=== PATIENT | female | born 1995 | race Caucasian/White ===

== ENCOUNTER 2017-10-09 13:35 | Emergency (ER) | payer OTHER ==
[2017-10-09 14:20] VITALS: BP 101/52
[2017-10-09 15:29] LABS: Bacteria,Urine 1+ /HPF (Negative); Bilirubin,Urine NEG (Negative); Blood,Urine NEG (Negative); Color,Urine Yellow (Yellow); Mucus,Urine 3+ /HPF
[2017-10-09 15:36] LABS: Amphetamine Screen,Urine PRESUMPTIVE NEGATIVE; Benzodiazepines Screen,Urine PRESUMPTIVE NEGATIVE; Cannabinoid Screen,Urine PRESUMPTIVE NEGATIVE; Cocaine Screen,Urine PRESUMPTIVE NEGATIVE; Methadone Screen,Urine PRESUMPTIVE NEGATIVE; Opiate Screen,Urine PRESUMPTIVE NEGATIVE
--- NOTE | 2017-10-09 15:49 | XRay Report ---
FINAL REPORT EXAM: XR CHEST ROUTINE 2V HISTORY: Chest Pain TECHNIQUE: Frontal and lateral chest radiographs. PRIORS: None. FINDINGS: The cardiomediastinal silhouette is normal. No focal consolidation. No pleural effusion. No pneumothorax. No acute osseous abnormality. IMPRESSION: No acute cardiopulmonary process.
[2017-10-09] MEDS ORDERED: TYLENOL PO ONE (16:22)
--- NOTE | 2017-10-09 16:22 | Emergency Department Report ---
HPI - General Chief Complaint: Chest Pain - HPI HPI: 22-year-old female comes in with chest pain. Patient reports that her heart was pounding and she was having a feeling that her pulse burning. Patient reports that she had the flu one month ago which has resolved. Patient does admit to a headache this morning but has gotten better after taking the Advil prior to coming in. She denies any cough admits to sneezing and runny nose nasal congestion. She denies any recent lifting no trauma to the chest. That pain is elicited when she checked the middle of her chest. She does admit that she has had imaging which showed that she had some fluid around her ribs. Patient is followed by now Dr. John. ED Past Medical Hx - Past Medical History Previous Medical History?: No - Surgical History Past Surgical History?: No Additional Surgical History: knee, tumor removed - Social History Smoking Status: Never Smoker Substance Use Type: None - Medications Home Medications: Home Medications Medication Instructions Recorded Confirmed Last Taken Type Ibuprofen 600 mg PO TID #90 tablet 10/09/17 Unknown Rx Levocetirizine Dihydrochloride 5 mg PO QDAY #30 tablet 10/09/17 Unknown Rx ED Review of Systems ROS: Stated complaint: CHEST PAIN Other details as noted in HPI Constitutional: denies: chills, fever Eyes: denies: eye pain, eye discharge, vision change ENT: congestion, other (nasal congestion, wheezing). denies: ear pain, throat pain Respiratory: denies: cough, shortness of breath, wheezing Cardiovascular: chest pain (when she touches her sternum) Endocrine: no symptoms reported Gastrointestinal: denies: abdominal pain, nausea, diarrhea Genitourinary: denies: urgency, dysuria, discharge Musculoskeletal: denies: back pain, joint swelling, arthralgia Skin: denies: rash, lesions Neurological: denies: headache, weakness, paresthesias Psychiatric: denies: anxiety, depression Hematological/Lymphatic: denies: easy bleeding, easy bruising Physical Exam - Physical Exam Vital Signs: Vital Signs 10/09/17 14:17 Temperature 98.5 F Pulse Rate 94 H Blood Pressure 101/52 O2 Sat by Pulse 97 Oximetry Physical Exam: GENERAL: Alert and oriented x3, no apparent distress, Normal Gait, atraumatic. HEAD: Head is normocephalic and a-traumatic. EYES: Extra ocular muscles are intact. Pupils are equal, round, and reactive to light and accommodation. EARS: symetrical, atraumatic, non tender, ear canal clear and moderate cerumen, tympanic membrance non inflamed. gross auditory nml bilaterally. NOSE: Nose symetrical, Nontender,Nares appeared normal. MOUTH:Mouth is well hydrated and without lesions. Tonsils nonerythematous or swollen, Uvula midline, Tongue not elevated. Mucous membranes are moist. Posterior pharynx clear, no exudate or lesions. Patent airways. NECK: Supple. Non edematous, No carotid bruits. No lymphadenopathy or thyromegaly. LUNGS: Symetrical with respiration, No wheezing, no rales or crackles, CTAB. HEART: S1, S2 present, regular rate and rhythm without murmur, no rubs, no gallops. patient with palpitation to distal sternum EXTREMITIES/MUSCULOSKELETAL: No cyanosis, clubbing, rash, lesions or edema. Full ROM bilaterally. UE/LE Pulses 2+ bilaterally. LE and UE 5+ strength bilaterally NEUROLOGIC: No focal Deficit, Cranial nerves II through XII are grossly intact. No loss of sensation, No facial droop, PSYCHIATRIC: Mood is congruent with affect, denies suicidal or homicidal ideations. SKIN: Warm and dry, No lesions, No ulceration or induration present ED Course Vital Signs 10/09/17 14:17 Temperature 98.5 F Pulse Rate 94 H Blood Pressure 101/52 O2 Sat by Pulse 97 Oximetry ED Medical Decision Making - Radiology Data Radiology results: report reviewed Impression of chest x-ray no acute cardiopulmonary process. - Medical Decision Making Patient been evaluated by this provider. I discussed the patient and her EKG was within normal limits. Discussed the patient and her chest x-rays is negative.I give her Tylenol and that she can take another Advil and about an hour. Critical care attestation.: If time is entered above; I have spent that time in minutes in the direct care of this critically ill patient, excluding procedure time. ED Disposition Clinical Impression: Osteochondritis Seasonal allergies Qualifiers: Allergic rhinitis trigger: unspecified Qualified Code(s): J30.2 - Other seasonal allergic rhinitis Disposition: - TO HOME OR SELFCARE Is pt being admited?: No Does the pt Need Aspirin: No Condition: Stable Instructions: Costochondritis (ED), Allergic Rhinitis (ED) Additional Instructions: Take medication as prescribed. Follow-up to primary care provider if symptoms persist or gets worse. Prescriptions: Ibuprofen 600 mg PO TID #90 tablet Levocetirizine Dihydrochloride 5 mg PO QDAY #30 tablet Referrals: CHEKO MONTALVO MD [Primary Care Provider] - 3-5 Days REJI JOHN MD [Referring] - 3-5 Days
== END 2017-10-09 16:43 | disposition home or self-care (01) ==
LOC: ED 13:35
DX: M93.90 Osteochondropathy, unspecified of unspecified site (principal); J30.2 Other seasonal allergic rhinitis
CPT/HCPCS: 71046; 80307; 81001; 93005; 93010

== ENCOUNTER 2019-02-24 15:10 | Emergency (ER) | payer OTHER ==
--- NOTE | 2019-02-24 16:15 | Event Note ---
ED Screening Note ED Screening Note: pt states that she has emesis today had one episode today with small amount of blood streak no abd pain no vaginal bleeding pt is 16 weeks preg, OB: Dr. Somers no dysuria no diarrhea no fever no PMHx no allergies to meds This initial assessment/diagnostic orders/clinical plan/treatment(s) is/are s ubject to change based on patients health status, clinical progression and re- assessment by fellow clinical providers in the ED. Further treatment and workup at subsequent clinical providers discretion. Patient/guardian urged not to elope from the ED as their condition may be serious if not clinically assessed and managed. Initial orders include: labs, UA
[2019-02-24 16:55] LABS: Basophils % (Auto) 0.4 % (0.0-1.8); Eosinophils # (Auto) 0.1 K/mm3 (0.0-0.4); Eosinophils % (Auto) 0.6 % (0.0-4.3); Hematocrit 34.5 % (30.3-42.9); Hemoglobin 11.9 gm/dl (10.1-14.3); Lymphocytes # (Auto) 2.2 K/mm3 (1.2-5.4); Lymphocytes % (Auto) 18.5 % (13.4-35.0); Mean Corpuscular HGB Conc 34 % (30-34); Mean Corpuscular Volume 99 fl (79-97); Monocytes # (Auto) 0.5 K/mm3 (0.0-0.8); Monocytes % (Auto) 4.6 % (0.0-7.3); Platelet Count 187 K/mm3 (140-440); Red Blood Count 3.49 M/mm3 (3.65-5.03); Red Cell Distribution Width 13.9 % (13.2-15.2)
[2019-02-24 17:09] LABS: Bacteria,Urine 2+ /HPF (Negative); Bilirubin,Urine NEG (Negative); Blood,Urine NEG (Negative); Color,Urine Yellow (Yellow); Mucus,Urine FEW /HPF; Protein,Urine <15 mg/dL mg/dL (Negative); Urobilinogen,Urine < 2.0 mg/dL (<2.0)
[2019-02-24 17:22] LABS: Alanine Aminotransferase 78 units/L (7-56); Albumin 3.7 g/dL (3.9-5); BUN/Creatinine Ratio 15; Blood Urea Nitrogen 6 mg/dL (7-17); Calcium 9.5 mg/dL (8.4-10.2); Hemolysis Index 4
[2019-02-24] MEDS ORDERED: PEPCID IV ONE (20:07)
[2019-02-24] MEDS ORDERED: REGLAN IV ONE (20:07)
[2019-02-24] MEDS ORDERED: LIDOCAINE VISCOUS 2% PO ONE (20:07)
[2019-02-24] MEDS ORDERED: ALUM-MAG HYDROX-SIMETH 200-200-20MG/5ML PO ONE (20:07)
[2019-02-24] MEDS ORDERED: ROCEPHIN/NS 1 GM/50 ML 1 GM/50 ML BAG IV ONE (20:08)
[2019-02-24 20:30] VITALS: BP 94/59
--- NOTE | 2019-02-24 21:54 | Ultrasound Report ---
ULTRASOUND OBSTETRIC INDICATION / CLINICAL INFORMATION: Abdominal pain. Clinical Gestational Age (GA): 17 weeks 0 days with LMP 10/28/2018 TECHNIQUE: Transabdominal. COMPARISON: None available. FINDINGS: There is a single intrauterine . Biparietal Diameter = 3.59 cm = 17 weeks, 0 day(s). Head Circumference = 13.08 cm = 16 weeks, 5 day(s). Abdominal Circumference = 11.37 cm = 17 weeks, 1 day(s). Femur Length = 2.27 cm = 17 weeks, 0 day(s). Average Ultrasound Age (AUA) = 17 weeks, 0 day(s). Heart Rate: 178 beats per minute. Estimated Weight in grams (if calculated): 178 Estimated Weight Growth Percentile (if calculated): Not calculated Position: breech. Cervix: closed. Length in cm (if measured): Placenta: Posterior grade 0 and free of the os. Amniotic Fluid Volume: normal Amniotic Fluid Index (JALEESA) in cm (if calculated): . Maternal Adnexa: Not visualized IMPRESSION: 1. Single, living intrauterine with estimated sonographic age of 17 weeks, 0 day(s). 2. No significant sonographic abnormality. Signer Name: Anthony Bergeron MD Signed: 02/24/2019 9:49 PM Workstation Name: [id number]
--- NOTE | 2019-02-24 22:09 | Emergency Department Report ---
ED N/V/D HPI - General Chief complaint: Nausea/Vomiting/Diarrhea Stated complaint: 16WKS /VOMITTING BLOOD Time Seen by Provider: 02/24/19 16:14 Source: patient Mode of arrival: Ambulatory Limitations: No Limitations - History of Present Illness Initial comments: Patient is a A0 23-year-old female who is approximately 16 weeks gestation and presents to the ED with conjugate of acute onset intermittent nausea and vomiting with a single episode of hematemesis which she describes as mixed blood and food particles from the stomach to arouse him. Patient states that the vomiting and hematemesis was one time 12 hours ago and when she contacted her teacher vocal, she was told to come to the ED for evaluation of the fetus and SOB. Patient denies abdominal pain, vaginal bleeding, dysuria, urinary frequency and urgency, dizziness, fever, chills, cough, chest pain, sore throat, headache, shortness of breath, or diarrhea. Patient states that she has been eating intermittently through the day with no nausea or vomiting. MD complaint: nausea, vomiting, other (hematemesis) -: Sudden, hour(s) (12) Description of Vomiting: food contents, watery, bilious, blood-streaked Description of Diarrhea: other (None) Associated Abdominal Pain: No Location: epigastric Radiation: none Severity: mild Pain Scale: 0 Quality: dull Consistency: intermittent, now resolved Improves with: none Worsens with: none Associated Symptoms: denies other symptoms, nausea/vomiting. denies: myalgias, chest pain, cough, diaphoresis, fever/chills, headaches, loss of appetite, malaise, rash, dysuria, shortness of breath, syncope, weakness - Related Data Previous Rx's Medication Instructions Recorded Last Taken Type Ibuprofen 600 mg PO TID #90 tablet 10/09/17 Unknown Rx Levocetirizine Dihydrochloride 5 mg PO QDAY #30 tablet 10/09/17 Unknown Rx Omeprazole 20 mg PO DAILY #30 capsule. 02/24/19 Unknown Rx Promethazine [Phenergan] 25 mg PO Q6HR PRN #24 tab 02/24/19 Unknown Rx cephALEXin [Keflex] 500 mg PO Q6HR #40 capsule 02/24/19 Unknown Rx Allergies Allergy/AdvReac Type Severity Reaction Status Date / Time No Known Allergies Allergy Verified 02/24/19 15:12 ED Review of Systems ROS: Stated complaint: 16WKS /VOMITTING BLOOD Other details as noted in HPI Constitutional: denies: chills, fever Eyes: denies: eye pain, eye discharge, vision change ENT: denies: ear pain, throat pain Respiratory: denies: cough, shortness of breath, wheezing Cardiovascular: denies: chest pain, palpitations Endocrine: no symptoms reported Gastrointestinal: nausea, vomiting, hematemesis. denies: abdominal pain, diarrhea Genitourinary: denies: urgency, dysuria, discharge Musculoskeletal: denies: back pain, joint swelling, arthralgia Skin: denies: rash, lesions Neurological: denies: headache, weakness, paresthesias Psychiatric: denies: anxiety, depression Hematological/Lymphatic: denies: easy bleeding, easy bruising ED Past Medical Hx - Past Medical History Previous Medical History?: No - Surgical History Past Surgical History?: No Additional Surgical History: knee, tumor removed - Social History Smoking Status: Never Smoker Substance Use Type: None - Medications Home Medications: Home Medications Medication Instructions Recorded Confirmed Last Taken Type Ibuprofen 600 mg PO TID #90 tablet 10/09/17 Unknown Rx Levocetirizine Dihydrochloride 5 mg PO QDAY #30 tablet 10/09/17 Unknown Rx Omeprazole 20 mg PO DAILY #30 capsule. 02/24/19 Unknown Rx Promethazine [Phenergan] 25 mg PO Q6HR PRN #24 tab 02/24/19 Unknown Rx cephALEXin [Keflex] 500 mg PO Q6HR #40 capsule 02/24/19 Unknown Rx ED Physical Exam - General Limitations: No Limitations General appearance: alert, in no apparent distress - Head Head exam: Present: atraumatic, normocephalic, normal inspection - Eye Eye exam: Present: normal appearance, PERRL, EOMI. Absent: scleral icterus, conjunctival injection Pupils: Present: normal accommodation - ENT ENT exam: Present: normal exam, normal orophraynx, mucous membranes moist, TM's normal bilaterally, normal external ear exam - Neck Neck exam: Present: normal inspection, full ROM. Absent: tenderness - Respiratory Respiratory exam: Present: normal lung sounds bilaterally. Absent: respiratory distress, wheezes, rales, rhonchi, stridor, chest wall tenderness, accessory muscle use, decreased breath sounds - Cardiovascular Cardiovascular Exam: Present: regular rate, normal rhythm, normal heart sounds. Absent: systolic murmur, diastolic murmur, rubs, gallop - GI/Abdominal GI/Abdominal exam: Present: soft, normal bowel sounds, other (Gravid abdomen). Absent: distended, tenderness, guarding, rebound, rigid, hyperactive bowel sounds, hypoactive bowel sounds, organomegaly, mass - Rectal Rectal exam: Present: deferred - Extremities Exam Extremities exam: Present: normal inspection, full ROM, normal capillary refill - Back Exam Back exam: Present: normal inspection. Absent: CVA tenderness (L), muscle spasm - Neurological Exam Neurological exam: Present: alert, oriented X3 - Psychiatric Psychiatric exam: Present: normal affect, normal mood - Skin Skin exam: Present: warm, dry, intact, normal color. Absent: rash ED Course Vital Signs 02/24/19 02/24/19 16:14 20:29 Temperature 98.5 F 98.6 F Pulse Rate 78 75 Respiratory 16 18 Rate Blood Pressure 129/88 Blood Pressure 94/59 [Left] O2 Sat by Pulse 98 100 Oximetry - Reevaluation(s) Reevaluation #1: 02/24/19 22:18 Patient is alert and oriented 3 and is nontender distress with normal vital signs. Lab test results were reviewed and are unremarkable except for acute leukocytosis of 12,000 and acute urinary tract infection in urinalysis. Patient was treated for nausea and vomiting and also treated with antacids in the ED. Patient also received Rocephin 1 g IV for acute urinary tract infection. The ultrasound shows a single living IUP with estimated sonographic age of 17 weeks and 0 days. The patient's heart rate is 178 bpm and the fetus lies in a breech position. There are no other significant sonographic abnormalities. On reevaluation, patient is feeling better, and has not had any nausea or vomiting in the ED after drinking the GI cocktail. Patient is discharged home on antiemetics, antacids and antibiotics and advised to follow-up with her SPEECH PATHOLOGIST ASSIST[facility] physician in 3-5 days for reevaluation. Patient also given a referral to the GI physician with the [facility] head operator, Dr. Nguyễn Sellers for further evaluation of her Hematemesis. Patient was advised to return to the ED immediately if symptoms get worse. 02/24/19 22:18 02/24/19 22:20 ED Medical Decision Making - Lab Data Result diagrams: 02/24/19 16:25 02/24/19 16:25 - Radiology Data Radiology results: report reviewed, image reviewed The ultrasound shows a single living IUP with estimated sonographic age of 17 weeks and 0 days. The patient's heart rate is 178 bpm and the fetus lies in a breech position. There are no other significant sonographic abnormalities. 02/24/19 22:18 - Medical Decision Making Patient is alert and oriented 3 and is nontender distress with normal vital signs. Lab test results were reviewed and are unremarkable except for acute leukocytosis of 12,000 and acute urinary tract infection in urinalysis. Patient was treated for nausea and vomiting and also treated with antacids in the ED. Patient also received Rocephin 1 g IV for acute urinary tract infection. The ultrasound shows a single living IUP with estimated sonographic age of 17 weeks and 0 days. The patient's heart rate is 178 bpm and the fetus lies in a breech position. There are no other significant sonographic abnormalities. On reevaluation, patient is feeling better, and has not had any nausea or vomiting in the ED after drinking the GI cocktail. Patient is discharged home on antiemetics, antacids and antibiotics and advised to follow-up with her [facility] PATHOLOGIST ASSIST[facility] physician in 3-5 days for reevaluation. Patient also given a referral to the GI physician with the [facility] operator, Dr. Nguyễn Sellers for further evaluation of her Hematemesis. Patient was advised to return to the ED im mediately if symptoms get worse. 02/24/19 22:18 - Differential Diagnosis Nausea and vomiting; Hematemesis, Acuet UTI, GERD Critical care attestation.: If time is entered above; I have spent that time in minutes in the direct care of this critically ill patient, excluding procedure time. ED Disposition Clinical Impression: Nausea and vomiting in Hematemesis Qualifiers: Nausea presence: with nausea Qualified Code(s): K92.0 - Hematemesis Disposition: - TO HOME OR SELFCARE Is pt being admited?: No Does the pt Need Aspirin: No Condition: Stable Instructions: Acute Nausea and Vomiting (ED), Morning Sickness (ED) Additional Instructions: Take medications with food as advised. Follow up with the [facility] PATHOLOGIST ASSIST[facility] physician in 3-5 days for reevaluation. Follow with the GI physicians at [facility] for further evaluation. Contact the GI physicians office to schedule an appointment. Return to the ED immediately if symptoms get worse. Prescriptions: cephALEXin [Keflex] 500 mg PO Q6HR #40 capsule Omeprazole 20 mg PO DAILY #30 capsule. Promethazine [Phenergan] 25 mg PO Q6HR PRN #24 tab PRN Reason: Nausea Referrals: ALISA SELF MD [Staff Physician] - 3-5 Days Time of Disposition: 22:11 Print Language: SYRIAC
== END 2019-02-24 22:27 | disposition home or self-care (01) ==
LOC: ED 15:10
DX: O99.612 Diseases of the digestive system complicating pregnancy, second trimester (principal); K92.0 Hematemesis; O21.9 Vomiting of pregnancy, unspecified; Z79.899 Other long term (current) drug therapy; Z3A.17 17 weeks gestation of pregnancy
CPT/HCPCS: 36415; 76805; 80053; 81001; 84703; 85025; 87086; 96365; 96375; 99284; J0696; J2765

== ENCOUNTER 2019-06-21 09:49 | Outpatient (CLI) | payer OTHER, MEDICAID ==
[2019-06-21 10:48] LABS: Bacteria,Urine 1+ /HPF (Negative); Bilirubin,Urine NEG (Negative); Blood,Urine NEG (Negative); Color,Urine Yellow (Yellow); Mucus,Urine 1+ /HPF; Protein,Urine <15 mg/dL mg/dL (Negative); Urobilinogen,Urine < 2.0 mg/dL (<2.0)
[2019-06-21] MEDS ORDERED: LACTATED RINGERS 500 ML IV ONE (11:31)
[2019-06-21] MEDS ORDERED: LACTATED RINGERS 1,000 ML IV SCH (12:00)
[2019-06-21 12:24] LABS: Amphetamine Screen,Urine PRESUMPTIVE NEGATIVE; Benzodiazepines Screen,Urine PRESUMPTIVE NEGATIVE; Cannabinoid Screen,Urine PRESUMPTIVE NEGATIVE; Cocaine Screen,Urine PRESUMPTIVE NEGATIVE; Methadone Screen,Urine PRESUMPTIVE NEGATIVE; Opiate Screen,Urine PRESUMPTIVE NEGATIVE
[2019-06-21] MEDS ORDERED: TERBUTALINE 1 MG/1 ML INJ SUB-Q SCH (13:00)
[2019-06-21 13:59] VITALS: BP 132/87
== END 2019-06-21 14:14 | disposition home or self-care (01) ==
LOC: TRG 09:49
PROVIDERS: ATTEND Obstetrics & Gynecology
DX: O60.03 Preterm labor without delivery, third trimester (principal); Z3A.33 33 weeks gestation of pregnancy
CPT/HCPCS: 80307; 81001; J3105; J7120

== ENCOUNTER 2019-08-05 21:15 | Inpatient (IN) | payer OTHER, MEDICAID ==
[2019-08-05] MEDS ORDERED: fentaNYL 100 MCG/2 ML INJ IV PRN ×2 (21:59→23:32)
[2019-08-05] MEDS ORDERED: LACTATED RINGERS 1,000 ML IV ONE (21:59)
[2019-08-05 22:34] LABS: Basophils # (Auto) 0.1 K/mm3 (0.0-0.1); Basophils % (Auto) 0.7 % (0.0-1.8); Eosinophils % (Auto) 0.3 % (0.0-4.3); Hematocrit 34.7 % (30.3-42.9); Lymphocytes # (Auto) 2.3 K/mm3 (1.2-5.4); Lymphocytes % (Auto) 14.8 % (13.4-35.0); Mean Corpuscular HGB Conc 34 % (30-34); Mean Corpuscular Volume 94 fl (79-97); Monocytes % (Auto) 6.5 % (0.0-7.3); Platelet Count 184 K/mm3 (140-440)
[2019-08-05] MEDS ORDERED: ePHEDrine SULFATE 50 MG/1 ML INJ ONE (23:29)
[2019-08-05] MEDS ORDERED: TERBUTALINE 1 MG/1 ML INJ SUB-Q PRN (23:32)
[2019-08-05] MEDS ORDERED: MINERAL OIL 30 ML ORAL LIQD PO PRN (23:32)
[2019-08-05] MEDS ORDERED: ePHEDrine SULFATE 50 MG/1 ML INJ IV PRN ×2 (23:32→23:57)
[2019-08-05] MEDS ORDERED: TERBUTALINE 1 MG/1 ML INJ IVP PRN (23:32)
[2019-08-05] MEDS ORDERED: DEXMEDETOMIDINE 200 MCG/2 ML VIAL IV ONE (23:37)
--- NOTE | 2019-08-05 23:38 | History and Physical Report ---
History of Present Illness Date of admission: 08/05/19 22:26 Chief complaint: IUP@39weeks, active labor History of present illness: Past History : 1 Term Births: 0 Premature Births: 0 Living Children: 0 Para: 0 Mult. Births: 0 Prev : 0 Prev. attempt? 0 Aborta: 0 Elect. Ab: 0 Spont. Ab: 0 Ectopics: 0 Past Medical History: Reviewed history from 01/26/2014 and no changes required: Negative Past Medical History Past Surgical History: Reviewed history from 01/26/2014 and no changes required: negative Past Medical History Anesthesia Complications: negative Anemia: negative Autoimmune Disorder: negative Bleeding Disorder: negative Blood Transfusions: negative Breast Disease: negative Diabetes: negative Heart Disease: negative Hypertension: negative Hepatitis/Liver Disease: negative Kidney Disease/UTI: negative Neurologic/Epilepsy/Migraines: negative Phlebitis/Varicosities: negative Psychiatric: negative Pulmonary Disease/Asthma: negative Thyroid Disease: negative Hospitalizations: negative Surgery (Non-technical support associate): negative Abnormal PAP: negative VARUN Exposure: negative Infertility: negative Uterine Anomaly: negative Uterine Surgery (not C/S): negative Other Gynecologic Problems: negative Family Hx: mom-GDM, HTN MGM, MGF-HTN mom's cousin- breast Ca Social Hx: Patient is single, getting 01/13/19 denies ETOH/smoking/drugs Smoking History: Patient has never smoked. Infection History Hx of STD: none HIV Risk Eval: low risk Hepatitis B Risk Eval: low risk Personal hx. of genital herpes: no Partner hx. of genital herpes: no Rash, Viral, or Febrile illness since last LMP? no Varicella/Chicken Pox Status: Immunized TB Risk: no Genetic History Congenital Heart Defect: Mom: no Dad: no Yan Disease: Mom: no Dad: no Thalassemia Mom: no Dad: no Neural Tube Defect Mom: no Dad: no Down's Syndrome Mom: no Dad: no Isak-Sachs Mom: no Dad: no Sickle Cell Disease/Trait Mom: no Dad: no Hemophilia Mom: no Dad: no Muscular Dystrophy Mom: no Dad: no Cystic Fibrosis Mom: no Dad: no [place] Chorea Mom: no Dad: no Mental Retardation Mom: no Dad: no Fragile X Mom: no Dad: no Other Genetic/Chromosomal Disorder Mom: no Dad: no Child w/other defect Mom: no Dad: no Enviromental Exposures Xray Exposure: no Medication, drug, or alcohol use since LMP: no Chemical/Other Exposure: no Exposure to Cat Liter: no Hx of Parvovirus (Fifth Disease): no Occupational Exposure to Children: none 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 02/24/19 Unknown Rx Promethazine [Phenergan] 25 mg PO Q6HR PRN #24 tab 02/24/19 Unknown Rx cephALEXin [Keflex] 500 mg PO Q6HR #40 capsule 02/24/19 Unknown Rx Active Meds: Active Medications Ephedrine Sulfate (Ephedrine Sulfate) 10 mg IV Q2M PRN PRN Reason: Hypotension Fentanyl (Sublimaze) 100 mcg IV ONCE PRN PRN Reason: Pain , Severe (7-10) Stop: 08/05/19 23:59 Last Admin: 08/05/19 23:05 Dose: 100 mcg Documented by: Fentanyl (Sublimaze) 100 mcg IV Q2H PRN PRN Reason: Labor Pain Oxytocin/Sodium Chloride (Pitocin/Ns 20 Unit/1000ml Drip) 20 units in 1,000 mls @ 125 mls/hr IV DIRECT EVANGELINA Oxytocin/Sodium Chloride (Pitocin/Ns 30 Unit/500ml) 30 units in 500 mls @ 4 mls/hr IV TITR EVANGELINA; Protocol Lactated Ringer's (Lactated Ringers) 1,000 mls @ 125 mls/hr IV DIRECT EVANGELINA Mineral Oil (Mineral Oil) 30 ml PO QHS PRN PRN Reason: Constipation Terbutaline Sulfate (Brethine) 0.25 mg SUB-Q ONCE PRN PRN Reason: Hyperstimulation/Hypertonicity Terbutaline Sulfate (Brethine) 0.25 mg IVP ONCE PRN PRN Reason: Hyperstimulation/Hypertonicity - Vital Signs Vital signs: Vital Signs Pulse BP 83 114/62 08/05/19 21:34 08/05/19 21:34 Temp Pulse Resp BP Pulse Ox 99.2 F 81 16 126/71 08/05/19 21:44 08/05/19 23:24 08/05/19 21:44 08/05/19 23:24 - Physical Exam Breasts: Positive: deferred Cardiovascular: Regular rate Lungs: Positive: Normal air movement Abdomen: Positive: soft. Negative: tenderness Genitourinary (Female): Positive: normal external genitalia, normal perenium Vulva: both: normal Uterus: Positive: enlarged. Negative: tender Anus/Rectum: Positive: normal perianal skin Extremities: Positive: normal - Obstetrical FHR: category 2 FHR comments: Verbal consent obtained after procedure explained, AROM, thick meconium. IUPC and ISE placed w/o difficulty good variability, fhts 160's, early decels Cervical Dilatation: 5 Cervical Effacement Percentage: 90 station: -1 Uterine Contraction Frequency (min): 3 Uterine Contraction Pattern: Regular Results Result Diagrams: 08/05/19 22:11 Abnormal lab results 08/05/19 Range/Units 22:11 WBC 15.8 H (4.5-11.0) K/mm3 Collin # 1.0 H (0.0-0.8) K/mm3 Seg Neutrophils % 77.7 H (40.0-70.0) % Seg Neutrophils # 12.3 H (1.8-7.7) K/mm3 All other labs normal. Assessment and Plan - Patient Problems (1) 39 weeks gestation of Current Visit: Yes Status: Acute (2) Active labor at term Current Visit: Yes Status: Acute (3) Meconium in amniotic fluid Current Visit: Yes Status: Acute (4) Variable deceleration Current Visit: Yes Status: Acute Plan to address problem: amnioinfusion and observe closely
[2019-08-05] MEDS ORDERED: OXYTOCIN DRIP 30 UNITS/500 ML BAG IV SCH (23:45)
[2019-08-05] MEDS ORDERED: OXYTOCIN 20 UNIT/1000ML DRIP 20 UNITS/1,000 ML BAG IV SCH (23:45)
[2019-08-05] MEDS ORDERED: fentaNYL-BUPIV 2 MCG/ML-0.125% 200 MCG/100 ML BAG EPIDURAL SCH (23:45)
[2019-08-05] MEDS ORDERED: NALOXONE 2 MG/2 ML INJ IV PRN (23:57)
--- NOTE | 2019-08-05 23:58 | Anesthesia Day of Surgery ---
Anesthesia Day of Surgery - Day of Surgery Patient Examined: Yes Patient H&P Reviewed: Yes Patient is NPO: Yes
[2019-08-06] MEDS ORDERED: TETANUS,DIPH,PERTUSS(ACELL) VACCINE 0.5 ML SYRINGE IM ONE (01:05)
[2019-08-06] MEDS ORDERED: SODIUM CHLORIDE 0.45% 1000 ML 1,000 ML IV ONE (01:08)
[2019-08-06] MEDS ORDERED: SODIUM CHLORIDE 0.9% 1000 ML 1,000 ML VG SCH (01:15)
[2019-08-06] MEDS: LACTATED RINGERS 1,000 ML IV SCH ×2 (02:51→07:01)
[2019-08-06] MEDS ORDERED: ACETAMINOPHEN 325 MG TAB ONE (06:37)
[2019-08-06] MEDS ORDERED: ACETAMINOPHEN 325 MG TAB PO ONE (06:39)
--- NOTE | 2019-08-06 06:49 | Progress Note ---
Assessment and Plan Discussed possible shoulder dystocia. She was informed at this gestational age it is difficult to accurately determine adequacy of her pelvis as well as weight. Explained there could be a 1-2# discrepancy in the estimated weight with ultrasound. EFW by palpation 9+lbs. Complications associated with shoulder dystocia were extensively explained, including but now limited to: Permanent or temporary injury to the infant's extremities, permanent brain damage, or . She was also informed she may require an incision or a laceration may occur involving her vagina and/or perineum that may also involve the rectum. The incision may be performed to facilitate delivery of the . This incision/laceration may lead to future complications such as but not limited to, painful intercourse, rectovaginal fistula or fecal incontinence, multiple surgeries or other complications. Risks associated with delivery were discussed, including but not limited to: Bleeding that may require blood transfusion and its complications or hysterectomy, infection that may also require hysterectomy and may be fatal, injury to her bowel may require temporary or permanent colostomy, injury to her bladder that may also be temporary or permanent complications. She was also informed that once she's had a delivery she may require subsequent delivery with all future pregnancies. Questions were encouraged and answered. Patient voiced understanding. She is undecided at this time. . - Patient Problems (1) 39 weeks gestation of Current Visit: Yes Status: Acute (2) Active labor at term Current Visit: Yes Status: Acute (3) Meconium in amniotic fluid Current Visit: Yes Status: Acute (4) Variable deceleration Current Visit: Yes Status: Acute Plan to address problem: FHT's overall reassuring, Pitocin off, Amnioinfusion d/c's, O2 placed, left lateral position Subjective - Subjective Date of service: 08/06/19 Principal diagnosis: IUP@39 weeks Interval history: Received call at 0615 to evaluate FHT's Patient was resting in bed, supine semi ashby, Patient reports: movement normal, no new complaints Objective - Vital Signs Vital Signs: Vital Signs - 12hr 08/05/19 08/05/19 08/05/19 21:34 21:44 23:17 Temperature 99.2 F 98.3 F Pulse Rate 83 83 90 Respiratory 16 18 Rate Blood Pressure 114/62 Blood Pressure 114/62 126/71 [Left] O2 Sat by Pulse 95 Oximetry 08/05/19 08/05/19 08/05/19 23:24 23:37 23:39 Temperature Pulse Rate 81 97 H 136 H Respiratory Rate Blood Pressure 126/71 153/85 Blood Pressure [Left] O2 Sat by Pulse 95 Oximetry 08/05/19 08/05/19 08/05/19 23:42 23:45 23:46 Temperature Pulse Rate 53 L 90 122 H Respiratory Rate Blood Pressure 159/79 Blood Pressure [Left] O2 Sat by Pulse 95 93 Oximetry 08/05/19 08/05/19 08/05/19 23:47 23:51 23:52 Temperature Pulse Rate 114 H 88 91 H Respiratory Rate Blood Pressure 115/62 Blood Pressure [Left] O2 Sat by Pulse 94 94 96 Oximetry 08/05/19 08/05/19 08/05/19 23:54 23:56 23:57 Temperature Pulse Rate 84 76 83 Respiratory Rate Blood Pressure 111/60 111/60 Blood Pressure [Left] O2 Sat by Pulse 96 Oximetry 08/05/19 08/05/19 08/06/19 23:58 23:59 00:02 Temperature Pulse Rate 106 H 117 H 107 H Respiratory Rate Blood Pressure 109/57 Blood Pressure [Left] O2 Sat by Pulse 94 96 Oximetry 08/06/19 08/06/19 08/06/19 00:06 00:07 00:08 Temperature Pulse Rate 92 H 79 81 Respiratory Rate Blood Pressure 97/52 96/55 Blood Pressure [Left] O2 Sat by Pulse 94 94 Oximetry 08/06/19 08/06/19 08/06/19 00:10 00:12 00:17 Temperature Pulse Rate 78 81 96 H Respiratory Rate Blood Pressure 96/53 Blood Pressure [Left] O2 Sat by Pulse 95 94 Oximetry 08/06/19 08/06/19 08/06/19 00:22 00:23 00:27 Temperature Pulse Rate 77 81 87 Respiratory Rate Blood Pressure 96/51 Blood Pressure [Left] O2 Sat by Pulse 94 93 96 Oximetry 08/06/19 08/06/19 08/06/19 00:32 00:37 00:42 Temperature Pulse Rate 88 87 94 H Respiratory Rate Blood Pressure 94/54 Blood Pressure [Left] O2 Sat by Pulse 97 96 97 Oximetry 08/06/19 08/06/19 08/06/19 00:47 00:52 00:55 Temperature Pulse Rate 89 87 88 Respiratory Rate Blood Pressure 98/54 Blood Pressure [Left] O2 Sat by Pulse 97 97 Oximetry 08/06/19 08/06/19 08/06/19 00:57 01:02 01:07 Temperature Pulse Rate 90 95 H 88 Respiratory Rate Blood Pressure 103/55 Blood Pressure [Left] O2 Sat by Pulse 97 97 97 Oximetry 08/06/19 08/06/19 08/06/19 01:11 01:12 01:17 Temperature Pulse Rate 91 H 90 95 H Respiratory Rate Blood Pressure 102/58 Blood Pressure [Left] O2 Sat by Pulse 97 97 Oximetry 08/06/19 08/06/19 08/06/19 01:22 01:26 01:27 Temperature Pulse Rate 96 H 82 82 Respiratory Rate Blood Pressure 94/53 Blood Pressure [Left] O2 Sat by Pulse 96 97 Oximetry 08/06/19 08/06/19 08/06/19 01:32 01:35 01:37 Temperature Pulse Rate 76 71 72 Respiratory Rate Blood Pressure 92/55 95/54 Blood Pressure [Left] O2 Sat by Pulse 99 99 Oximetry 08/06/19 08/06/19 08/06/19 01:39 01:41 01:42 Temperature Pulse Rate 74 70 87 Respiratory Rate Blood Pressure 101/56 86/50 Blood Pressure [Left] O2 Sat by Pulse 99 Oximetry 08/06/19 08/06/19 08/06/19 01:43 01:45 01:47 Temperature Pulse Rate 64 65 73 Respiratory Rate Blood Pressure 119/58 114/57 113/57 Blood Pressure [Left] O2 Sat by Pulse 100 Oximetry 08/06/19 08/06/19 08/06/19 01:49 01:51 01:52 Temperature Pulse Rate 72 75 71 Respiratory Rate Blood Pressure 115/56 113/59 Blood Pressure [Left] O2 Sat by Pulse 100 Oximetry 08/06/19 08/06/19 08/06/19 01:53 01:55 01:57 Temperature Pulse Rate 67 74 76 Respiratory Rate Blood Pressure 107/57 114/57 113/59 Blood Pressure [Left] O2 Sat by Pulse 100 Oximetry 08/06/19 08/06/19 08/06/19 01:59 02:01 02:02 Temperature Pulse Rate 75 77 70 Respiratory Rate Blood Pressure 112/56 116/56 Blood Pressure [Left] O2 Sat by Pulse 100 Oximetry 08/06/19 08/06/19 08/06/19 02:03 02:05 02:07 Temperature Pulse Rate 69 80 74 Respiratory Rate Blood Pressure 106/56 107/57 105/57 Blood Pressure [Left] O2 Sat by Pulse 100 Oximetry 08/06/19 08/06/19 08/06/19 02:09 02:11 02:12 Temperature Pulse Rate 100 H 85 81 Respiratory Rate Blood Pressure 105/59 112/57 Blood Pressure [Left] O2 Sat by Pulse 100 Oximetry 08/06/19 08/06/19 08/06/19 02:13 02:15 02:17 Temperature Pulse Rate 80 71 74 Respiratory Rate Blood Pressure 110/57 105/55 108/55 Blood Pressure [Left] O2 Sat by Pulse 100 Oximetry 08/06/19 08/06/19 08/06/19 02:19 02:21 02:22 Temperature Pulse Rate 80 78 83 Respiratory Rate Blood Pressure 107/59 111/54 Blood Pressure [Left] O2 Sat by Pulse 100 Oximetry 08/06/19 08/06/19 08/06/19 02:23 02:25 02:27 Temperature Pulse Rate 79 62 71 Respiratory Rate Blood Pressure 104/51 104/54 111/53 Blood Pressure [Left] O2 Sat by Pulse 99 Oximetry 08/06/19 08/06/19 08/06/19 02:29 02:31 02:32 Temperature Pulse Rate 72 75 77 Respiratory Rate Blood Pressure 110/54 97/54 Blood Pressure [Left] O2 Sat by Pulse 100 Oximetry 08/06/19 08/06/19 08/06/19 02:33 02:35 02:37 Temperature Pulse Rate 76 110 H 78 Respiratory Rate Blood Pressure 102/55 110/62 109/59 Blood Pressure [Left] O2 Sat by Pulse 100 Oximetry 08/06/19 08/06/19 08/06/19 02:39 02:41 02:42 Temperature Pulse Rate 73 77 92 H Respiratory Rate Blood Pressure 104/58 101/55 Blood Pressure [Left] O2 Sat by Pulse 99 Oximetry 08/06/19 08/06/19 08/06/19 02:44 02:47 02:52 Temperature Pulse Rate 88 82 86 Respiratory Rate Blood Pressure 126/62 Blood Pressure [Left] O2 Sat by Pulse 98 97 Oximetry 08/06/19 08/06/19 08/06/19 02:55 02:57 02:59 Temperature 99.3 F Pulse Rate 88 82 Respiratory Rate Blood Pressure 122/66 Blood Pressure [Left] O2 Sat by Pulse 97 Oximetry 08/06/19 08/06/19 08/06/19 03:02 03:07 03:12 Temperature Pulse Rate 85 84 88 Respiratory Rate Blood Pressure Blood Pressure [Left] O2 Sat by Pulse 97 96 96 Oximetry 08/06/19 08/06/19 08/06/19 03:14 03:17 03:22 Temperature Pulse Rate 83 88 79 Respiratory Rate Blood Pressure 106/61 Blood Pressure [Left] O2 Sat by Pulse 96 97 Oximetry 08/06/19 08/06/19 08/06/19 03:27 03:28 03:32 Temperature Pulse Rate 85 93 H 84 Respiratory Rate Blood Pressure 109/62 Blood Pressure [Left] O2 Sat by Pulse 96 97 Oximetry 08/06/19 08/06/19 08/06/19 03:37 03:42 03:43 Temperature Pulse Rate 92 H 85 81 Respiratory Rate Blood Pressure 111/64 Blood Pressure [Left] O2 Sat by Pulse 97 97 Oximetry 08/06/19 08/06/19 08/06/19 03:47 03:52 03:57 Temperature Pulse Rate 99 H 106 H 125 H Respiratory Rate Blood Pressure Blood Pressure [Left] O2 Sat by Pulse 97 98 99 Oximetry 08/06/19 08/06/19 08/06/19 03:58 04:02 04:03 Temperature 99.9 F H Pulse Rate 148 H 122 H Respiratory Rate Blood Pressure 112/60 Blood Pressure [Left] O2 Sat by Pulse 98 Oximetry 08/06/19 08/06/19 08/06/19 04:07 04:12 04:13 Temperature Pulse Rate 92 H 101 H 105 H Respiratory Rate Blood Pressure 109/73 Blood Pressure [Left] O2 Sat by Pulse 98 98 Oximetry 08/06/19 08/06/19 08/06/19 04:17 04:22 04:27 Temperature Pulse Rate 121 H 103 H 106 H Respiratory Rate Blood Pressure Blood Pressure [Left] O2 Sat by Pulse 98 98 98 Oximetry 08/06/19 08/06/19 08/06/19 04:29 04:32 04:37 Temperature Pulse Rate 100 H 111 H 104 H Respiratory Rate Blood Pressure 120/68 Blood Pressure [Left] O2 Sat by Pulse 97 98 Oximetry 08/06/19 08/06/1908/06/19 04:42 04:44 04:47 Temperature Pulse Rate 112 H 112 H 100 H Respiratory Rate Blood Pressure 122/81 Blood Pressure [Left] O2 Sat by Pulse 97 98 Oximetry 08/06/19 08/06/19 08/06/19 04:52 04:57 04:58 Temperature Pulse Rate 127 H 100 H 107 H Respiratory Rate Blood Pressure 137/62 Blood Pressure [Left] O2 Sat by Pulse 97 98 Oximetry 08/06/19 08/06/19 08/06/19 05:02 05:07 05:12 Temperature Pulse Rate 113 H 114 H 105 H Respiratory Rate Blood Pressure Blood Pressure [Left] O2 Sat by Pulse 98 98 98 Oximetry 08/06/19 08/06/19 08/06/19 05:13 05:17 05:22 Temperature Pulse Rate 99 H 111 H 109 H Respiratory Rate Blood Pressure 125/66 Blood Pressure [Left] O2 Sat by Pulse 98 98 Oximetry 08/06/19 08/06/19 08/06/19 05:27 05:29 05:32 Temperature Pulse Rate 85 84 88 Respiratory Rate Blood Pressure 108/55 Blood Pressure [Left] O2 Sat by Pulse 98 97 Oximetry 08/06/19 08/06/19 08/06/19 05:37 05:42 05:44 Temperature Pulse Rate 87 95 H 87 Respiratory Rate Blood Pressure 103/58 Blood Pressure [Left] O2 Sat by Pulse 98 98 Oximetry 08/06/19 08/06/19 08/06/19 05:47 05:52 05:57 Temperature Pulse Rate 100 H 90 91 H Respiratory Rate Blood Pressure Blood Pressure [Left] O2 Sat by Pulse 98 97 97 Oximetry 08/06/19 08/06/19 08/06/19 05:58 06:02 06:07 Temperature Pulse Rate 96 H 91 H 91 H Respiratory Rate Blood Pressure 96/56 Blood Pressure [Left] O2 Sat by Pulse 98 99 Oximetry 08/06/19 08/06/19 08/06/19 06:12 06:14 06:17 Temperature Pulse Rate 107 H 120 H 114 H Respiratory Rate Blood Pressure 115/71 Blood Pressure [Left] O2 Sat by Pulse 98 98 Oximetry 08/06/19 08/06/19 08/06/19 06:22 06:27 06:30 Temperature Pulse Rate 101 H 99 H 108 H Respiratory Rate Blood Pressure 130/87 Blood Pressure [Left] O2 Sat by Pulse 98 98 Oximetry 08/06/19 08/06/19 06:32 06:37 Temperature Pulse Rate 125 H 95 H Respiratory Rate Blood Pressure Blood Pressure [Left] O2 Sat by Pulse 97 98 Oximetry - Exam Breasts: deferred Lungs: Normal air movement Abdomen: Absent: tenderness Vulva: both: normal Uterus: Present: fundal height above umbilicus. Absent: tenderness FHR: category 2 FHR comments: tachycardia, good variabilitym, occasional variable. +Accelerations w/ scalp stimulation and FM by palpation Cervical Dilatation: 9.5 Cervical Effacement Percentage: 100 station: 0 Uterine Contraction Frequency (min): 3 Uterine Contraction Pattern: Regular Uterine Contraction Intensity: Moderate Extremities: normal - Labs Labs: Abnormal Labs 08/05/19 22:11 WBC 15.8 H [place] # 1.0 H Seg Neutrophils % 77.7 H Seg Neutrophils # 12.3 H Laboratory Results - last 24 hr 08/05/19 08/05/19 08/05/19 22:11 22:11 22:11 WBC 15.8 H RBC 3.70 Hgb 12.0 Hct 34.7 MCV 94 MCH 32 MCHC 34 RDW 15.0 Plt Count 184 Lymph % (Auto) 14.8 [place] % (Auto) 6.5 Eos % (Auto) 0.3 Baso % (Auto) 0.7 Lymph # 2.3 [place] # 1.0 H Eos # 0.0 Baso # 0.1 Seg Neutrophils % 77.7 H Seg Neutrophils # 12.3 H Syphilis IgG Antibody Non-reactive Blood Type A POSITIVE Antibody Screen Negative
[2019-08-06] MEDS ORDERED: BUPIVACAINE/PF (0.5%) 5 MG/1 ML 10 ML VIAL INFILTRATI ONE (07:34)
--- NOTE | 2019-08-06 07:37 | Progress Note ---
Assessment and Plan - Patient Problems (1) 39 weeks gestation of Current Visit: Yes Status: Acute (2) Active labor at term Current Visit: Yes Status: Acute (3) Meconium in amniotic fluid Current Visit: Yes Status: Acute (4) Variable deceleration Current Visit: Yes Status: Acute Subjective - Subjective Date of service: 08/06/19 Principal diagnosis: IUP@39 weeks Interval history: Received call at 0615 to evaluate FHT's Patient was resting in bed, supine semi ashby, Patient reports: movement normal, no new complaints Objective - Vital Signs Vital Signs: Vital Signs - 12hr 08/05/19 08/05/19 08/05/19 21:34 21:44 23:17 Temperature 99.2 F 98.3 F Pulse Rate 83 83 90 Respiratory 16 18 Rate Blood Pressure 114/62 Blood Pressure 114/62 126/71 [Left] O2 Sat by Pulse 95 Oximetry 08/05/19 08/05/19 08/05/19 23:24 23:37 23:39 Temperature Pulse Rate 81 97 H 136 H Respiratory Rate Blood Pressure 126/71 153/85 Blood Pressure [Left] O2 Sat by Pulse 95 Oximetry 08/05/19 08/05/19 08/05/19 23:42 23:45 23:46 Temperature Pulse Rate 53 L 90 122 H Respiratory Rate Blood Pressure 159/79 Blood Pressure [Left] O2 Sat by Pulse 95 93 Oximetry 08/05/19 08/05/19 08/05/19 23:47 23:51 23:52 Temperature Pulse Rate 114 H 88 91 H Respiratory Rate Blood Pressure 115/62 Blood Pressure [Left] O2 Sat by Pulse 94 94 96 Oximetry 08/05/19 08/05/19 08/05/19 23:54 23:56 23:57 Temperature Pulse Rate 84 76 83 Respiratory Rate Blood Pressure 111/60 111/60 Blood Pressure [Left] O2 Sat by Pulse 96 Oximetry 08/05/19 08/05/19 08/06/19 23:58 23:59 00:02 Temperature Pulse Rate 106 H 117 H 107 H Respiratory Rate Blood Pressure 109/57 Blood Pressure [Left] O2 Sat by Pulse 94 96 Oximetry 08/06/19 08/06/19 08/06/19 00:06 00:07 00:08 Temperature Pulse Rate 92 H 79 81 Respiratory Rate Blood Pressure 97/52 96/55 Blood Pressure [Left] O2 Sat by Pulse 94 94 Oximetry 08/06/19 08/06/19 08/06/19 00:10 00:12 00:17 Temperature Pulse Rate 78 81 96 H Respiratory Rate Blood Pressure 96/53 Blood Pressure [Left] O2 Sat by Pulse 95 94 Oximetry 08/06/19 08/06/19 08/06/19 00:22 00:23 00:27 Temperature Pulse Rate 77 81 87 Respiratory Rate Blood Pressure 96/51 Blood Pressure [Left] O2 Sat by Pulse 94 93 96 Oximetry 08/06/19 08/06/19 08/06/19 00:32 00:37 00:42 Temperature Pulse Rate 88 87 94 H Respiratory Rate Blood Pressure 94/54 Blood Pressure [Left] O2 Sat by Pulse 97 96 97 Oximetry 08/06/19 08/06/19 08/06/19 00:47 00:52 00:55 Temperature Pulse Rate 89 87 88 Respiratory Rate Blood Pressure 98/54 Blood Pressure [Left] O2 Sat by Pulse 97 97 Oximetry 08/06/19 08/06/19 08/06/19 00:57 01:02 01:07 Temperature Pulse Rate 90 95 H 88 Respiratory Rate Blood Pressure 103/55 Blood Pressure [Left] O2 Sat by Pulse 97 97 97 Oximetry 08/06/19 08/06/19 08/06/19 01:11 01:12 01:17 Temperature Pulse Rate 91 H 90 95 H Respiratory Rate Blood Pressure 102/58 Blood Pressure [Left] O2 Sat by Pulse 97 97 Oximetry 08/06/19 08/06/19 08/06/19 01:22 01:26 01:27 Temperature Pulse Rate 96 H 82 82 Respiratory Rate Blood Pressure 94/53 Blood Pressure [Left] O2 Sat by Pulse 96 97 Oximetry 08/06/19 08/06/19 08/06/19 01:32 01:35 01:37 Temperature Pulse Rate 76 71 72 Respiratory Rate Blood Pressure 92/55 95/54 Blood Pressure [Left] O2 Sat by Pulse 99 99 Oximetry 08/06/19 08/06/19 08/06/19 01:39 01:41 01:42 Temperature Pulse Rate 74 70 87 Respiratory Rate Blood Pressure 101/56 86/50 Blood Pressure [Left] O2 Sat by Pulse 99 Oximetry 08/06/19 08/06/19 08/06/19 01:43 01:45 01:47 Temperature Pulse Rate 64 65 73 Respiratory Rate Blood Pressure 119/58 114/57 113/57 Blood Pressure [Left] O2 Sat by Pulse 100 Oximetry 08/06/19 08/06/19 08/06/19 01:49 01:51 01:52 Temperature Pulse Rate 72 75 71 Respiratory Rate Blood Pressure 115/56 113/59 Blood Pressure [Left] O2 Sat by Pulse 100 Oximetry 08/06/19 08/06/19 08/06/19 01:53 01:55 01:57 Temperature Pulse Rate 67 74 76 Respiratory Rate Blood Pressure 107/57 114/57 113/59 Blood Pressure [Left] O2 Sat by Pulse 100 Oximetry 08/06/19 08/06/19 08/06/19 01:59 02:01 02:02 Temperature Pulse Rate 75 77 70 Respiratory Rate Blood Pressure 112/56 116/56 Blood Pressure [Left] O2 Sat by Pulse 100 Oximetry 08/06/19 08/06/19 08/06/19 02:03 02:05 02:07 Temperature Pulse Rate 69 80 74 Respiratory Rate Blood Pressure 106/56 107/57 105/57 Blood Pressure [Left] O2 Sat by Pulse 100 Oximetry 08/06/19 08/06/19 08/06/19 02:09 02:11 02:12 Temperature Pulse Rate 100 H 85 81 Respiratory Rate Blood Pressure 105/59 112/57 Blood Pressure [Left] O2 Sat by Pulse 100 Oximetry 08/06/19 08/06/19 08/06/19 02:13 02:15 02:17 Temperature Pulse Rate 80 71 74 Respiratory Rate Blood Pressure 110/57 105/55 108/55 Blood Pressure [Left] O2 Sat by Pulse 100 Oximetry 08/06/19 08/06/19 08/06/19 02:19 02:21 02:22 Temperature Pulse Rate 80 78 83 Respiratory Rate Blood Pressure 107/59 111/54 Blood Pressure [Left] O2 Sat by Pulse 100 Oximetry 08/06/19 08/06/19 08/06/19 02:23 02:25 02:27 Temperature Pulse Rate 79 62 71 Respiratory Rate Blood Pressure 104/51 104/54 111/53 Blood Pressure [Left] O2 Sat by Pulse 99 Oximetry 08/06/19 08/06/19 08/06/19 02:29 02:31 02:32 Temperature Pulse Rate 72 75 77 Respiratory Rate Blood Pressure 110/54 97/54 Blood Pressure [Left] O2 Sat by Pulse 100 Oximetry 08/06/19 08/06/19 08/06/19 02:33 02:35 02:37 Temperature Pulse Rate 76 110 H 78 Respiratory Rate Blood Pressure 102/55 110/62 109/59 Blood Pressure [Left] O2 Sat by Pulse 100 Oximetry 08/06/19 08/06/19 08/06/19 02:39 02:41 02:42 Temperature Pulse Rate 73 77 92 H Respiratory Rate Blood Pressure 104/58 101/55 Blood Pressure [Left] O2 Sat by Pulse 99 Oximetry 08/06/19 08/06/19 08/06/19 02:44 02:47 02:52 Temperature Pulse Rate 88 82 86 Respiratory Rate Blood Pressure 126/62 Blood Pressure [Left] O2 Sat by Pulse 98 97 Oximetry 08/06/19 08/06/19 08/06/19 02:55 02:57 02:59 Temperature 99.3 F Pulse Rate 88 82 Respiratory Rate Blood Pressure 122/66 Blood Pressure [Left] O2 Sat by Pulse 97 Oximetry 08/06/19 08/06/19 08/06/19 03:02 03:07 03:12 Temperature Pulse Rate 85 84 88 Respiratory Rate Blood Pressure Blood Pressure [Left] O2 Sat by Pulse 97 96 96 Oximetry 08/06/19 08/06/19 08/06/19 03:14 03:17 03:22 Temperature Pulse Rate 83 88 79 Respiratory Rate Blood Pressure 106/61 Blood Pressure [Left] O2 Sat by Pulse 96 97 Oximetry 08/06/19 08/06/19 08/06/19 03:27 03:28 03:32 Temperature Pulse Rate 85 93 H 84 Respiratory Rate Blood Pressure 109/62 Blood Pressure [Left] O2 Sat by Pulse 96 97 Oximetry 08/06/19 08/06/19 08/06/19 03:37 03:42 03:43 Temperature Pulse Rate 92 H 85 81 Respiratory Rate Blood Pressure 111/64 Blood Pressure [Left] O2 Sat by Pulse 97 97 Oximetry 08/06/19 08/06/19 08/06/19 03:47 03:52 03:57 Temperature Pulse Rate 99 H 106 H 125 H Respiratory Rate Blood Pressure Blood Pressure [Left] O2 Sat by Pulse 97 98 99 Oximetry 08/06/19 08/06/19 08/06/19 03:58 04:02 04:03 Temperature 99.9 F H Pulse Rate 148 H 122 H Respiratory Rate Blood Pressure 112/60 Blood Pressure [Left] O2 Sat by Pulse 98 Oximetry 08/06/19 08/06/19 08/06/19 04:07 04:12 04:13 Temperature Pulse Rate 92 H 101 H 105 H Respiratory Rate Blood Pressure 109/73 Blood Pressure [Left] O2 Sat by Pulse 98 98 Oximetry 08/06/19 08/06/19 08/06/19 04:17 04:22 04:27 Temperature Pulse Rate 121 H 103 H 106 H Respiratory Rate Blood Pressure Blood Pressure [Left] O2 Sat by Pulse 98 98 98 Oximetry 08/06/19 08/06/19 08/06/19 04:29 04:32 04:37 Temperature Pulse Rate 100 H 111 H 104 H Respiratory Rate Blood Pressure 120/68 Blood Pressure [Left] O2 Sat by Pulse 97 98 Oximetry 08/06/19 08/06/19 08/06/19 04:42 04:44 04:47 Temperature Pulse Rate 112 H 112 H 100 H Respiratory Rate Blood Pressure 122/81 Blood Pressure [Left] O2 Sat by Pulse 97 98 Oximetry 08/06/19 08/06/19 08/06/19 04:52 04:57 04:58 Temperature Pulse Rate 127 H 100 H 107 H Respiratory Rate Blood Pressure 137/62 Blood Pressure [Left] O2 Sat by Pulse 97 98 Oximetry 08/06/19 08/06/19 08/06/19 05:02 05:07 05:12 Temperature Pulse Rate 113 H 114 H 105 H Respiratory Rate Blood Pressure Blood Pressure [Left] O2 Sat by Pulse 98 98 98 Oximetry 08/06/19 08/06/19 08/06/19 05:13 05:17 05:22 Temperature Pulse Rate 99 H 111 H 109 H Respiratory Rate Blood Pressure 125/66 Blood Pressure [Left] O2 Sat by Pulse 98 98 Oximetry 08/06/19 08/06/19 08/06/19 05:27 05:29 05:32 Temperature Pulse Rate 85 84 88 Respiratory Rate Blood Pressure 108/55 Blood Pressure [Left] O2 Sat by Pulse 98 97 Oximetry 08/06/19 08/06/19 08/06/19 05:37 05:42 05:44 Temperature Pulse Rate 87 95 H 87 Respiratory Rate Blood Pressure 103/58 Blood Pressure [Left] O2 Sat by Pulse 98 98 Oximetry 1208/06/19 08/06/19 05:47 05:52 05:57 Temperature Pulse Rate 100 H 90 91 H Respiratory Rate Blood Pressure Blood Pressure [Left] O2 Sat by Pulse 98 97 97 Oximetry 08/06/19 08/06/19 08/06/19 05:58 06:02 06:07 Temperature Pulse Rate 96 H 91 H 91 H Respiratory Rate Blood Pressure 96/56 Blood Pressure [Left] O2 Sat by Pulse 98 99 Oximetry 08/06/19 08/06/19 08/06/19 06:12 06:14 06:17 Temperature Pulse Rate 107 H 120 H 114 H Respiratory Rate Blood Pressure 115/71 Blood Pressure [Left] O2 Sat by Pulse 98 98 Oximetry 08/06/19 08/06/19 08/06/19 06:22 06:27 06:30 Temperature Pulse Rate 101 H 99 H 108 H Respiratory Rate Blood Pressure 130/87 Blood Pressure [Left] O2 Sat by Pulse 98 98 Oximetry 08/06/19 08/06/19 08/06/19 06:32 06:37 06:42 Temperature Pulse Rate 125 H 95 H 98 H Respiratory Rate Blood Pressure Blood Pressure [Left] O2 Sat by Pulse 97 98 98 Oximetry 08/06/19 08/06/19 08/06/19 06:43 06:47 06:52 Temperature Pulse Rate 112 H 85 84 Respiratory Rate Blood Pressure 123/80 Blood Pressure [Left] O2 Sat by Pulse 100 100 Oximetry 08/06/19 08/06/19 08/06/19 06:57 06:59 07:02 Temperature Pulse Rate 84 84 88 Respiratory Rate Blood Pressure 117/64 Blood Pressure [Left] O2 Sat by Pulse 100 100 Oximetry 08/06/19 08/06/19 08/06/19 07:07 07:12 07:14 Temperature Pulse Rate 90 114 H 83 Respiratory Rate Blood Pressure 129/67 Blood Pressure [Left] O2 Sat by Pulse 100 100 Oximetry 08/06/19 08/06/19 08/06/19 07:17 07:22 07:27 Temperature Pulse Rate 88 92 H 94 H Respiratory Rate Blood Pressure Blood Pressure [Left] O2 Sat by Pulse 100 100 100 Oximetry - Exam FHR: category 2 FHR comments: Cervix now swelling, and caput palpated, fht's 200 unresolved with IVF, bolus position change and O2. Due to concerns for deterioration of status explained, questions answered, she agrees with proceed with C/S. Consent reviewed and signed - Labs Labs: Abnormal Labs 08/05/19 22:11 WBC 15.8 H [place] # 1.0 H Seg Neutrophils % 77.7 H Seg Neutrophils # 12.3 H Laboratory Results - last 24 hr 08/05/19 08/05/19 08/05/19 22:11 22:11 22:11 WBC 15.8 H RBC 3.70 Hgb 12.0 Hct 34.7 MCV 94 MCH 32 MCHC 34 RDW 15.0 Plt Count 184 Lymph % (Auto) 14.8 [place] % (Auto) 6.5 Eos % (Auto) 0.3 Baso % (Auto) 0.7 Lymph # 2.3 [place] # 1.0 H Eos # 0.0 Baso # 0.1 Seg Neutrophils % 77.7 H Seg Neutrophils # 12.3 H Syphilis IgG Antibody Non-reactive Blood Type A POSITIVE Antibody Screen Negative
[2019-08-06] MEDS ORDERED: CARBOPROST TROMETHAMINE 250 MCG/1 ML INJ IM NR (07:48)
[2019-08-06] MEDS ORDERED: DIPHENOXYLATE/ATROPINE TAB PO PRN (07:48)
[2019-08-06] MEDS ORDERED: miSOPROStol 200 MCG TAB PR NR (07:48)
[2019-08-06] MEDS ORDERED: METHYLERGONOVINE MALEATE 0.2 MG/ML VIAL IM NR (07:48)
[2019-08-06] MEDS ORDERED: ceFAZolin/Water 2 GM/20 ML 2 GM/20 ML SYRINGE IV NR (08:00)
[2019-08-06] MEDS ORDERED: ONDANSETRON 4 MG/2 ML INJ ONE (08:00)
[2019-08-06] MEDS ORDERED: OXYTOCIN 20 UNIT/1000ML DRIP 20 UNITS/1,000 ML BAG IV SCH ×2 (08:00→12:49)
[2019-08-06] MEDS ORDERED: METOCLOPRAMIDE 10 MG/2 ML INJ IV NR (08:00)
[2019-08-06] MEDS ORDERED: LACTATED RINGERS 1,000 ML IV SCH (08:00)
[2019-08-06] MEDS ORDERED: ceFAZolin/STERILE WATER 2 GM/20 ML SYRINGE IV ONE (08:00)
[2019-08-06] MEDS ORDERED: BICITRA ORAL LIQD 30ML PO NR (08:00)
[2019-08-06] MEDS ORDERED: FAMOTIDINE 20 MG/2 ML INJ IV NR (08:00)
[2019-08-06] MEDS ORDERED: HYDROmorphone 1 MG/1 ML INJ ONE (08:12)
[2019-08-06] MEDS ORDERED: KETOROLAC 30 MG/1 ML INJ ONE (08:46)
[2019-08-06] MEDS ORDERED: OXYTOCIN 10 UNIT/1 ML INJ ONE (08:46)
[2019-08-06] MEDS ORDERED: BUPIVACAINE/PF (0.5%) 5 MG/1 ML 30 ML VIAL INFILTRATI ONE (08:48)
[2019-08-06] MEDS ORDERED: SODIUM CHLORIDE 0.9% 100 ML ONE (08:48)
[2019-08-06] MEDS ORDERED: dexAMETHasone 20 MG/5 ML VIAL ONE (08:48)
[2019-08-06] MEDS ORDERED: HYDROmorphone 1 MG/1 ML INJ IV PRN ×2 (09:30→10:00)
[2019-08-06] MEDS ORDERED: NALOXONE 0.4 MG/1 ML INJ IV PRN ×2 (09:30→12:49)
--- NOTE | 2019-08-06 09:45 | Operative Report ---
Operative Report Operative Report: Date of procedure: 08/06/2019 Pre-operative diagnosis: 1. Intrauterine at 39-6/7 weeks gestation 2. tachycardia, nonreassuring FHT's 3. Intolerance to labor Post-operative diagnosis: 1. Intrauterine at 39-6/7 weeks gestation 2. tachycardia, nonreassuring FHT's 3. Intolerance to labor Procedure name(s): Primary low transverse section via Pfannenstiel skin incision Surgeon: Shonda Somers MD Cream Beater: JOSEPHINE Anesthesia: Epidural EBL: 1000 mL Urine output: Fluids: Findings: Liveborn female infant weight 9 pounds 4 ounces. Apgars 8 at 1 minute and 9 at 5 minutes Grossly normal uterus, fallopian tubes and ovaries bilaterally. Procedure: Patient was taking to the operating room. Patient was then prepped and draped in sterile fashion. Time out was performed. Once an appropriate level of anesthesia was noted,a Pfannenstiel incision was made with the scalpel and carried down to the underlying layer of fascia. The fascia was then incised in the midline and this incision was extended bilaterally. The superior aspect of the fascia was grasped with Malik clamps tented upward and dissected off of the anterior rectus muscles. In similar fashion the inferior aspect of the fascia was grasped with Malik clamps tented upward and dissected off of the anterior rectus muscles. The rectus muscles were then bluntly divided in the midline. The peritoneum was identified and entered into sharply. A large Kiel self retaining retractor was placed. The bladder flap was created using the Metzenbaum scissors. The bladder blade was placed. A lower transverse uterine incision was made with the scalpel and extended bilaterally with the with manual dissection in the superiolateral direction. Entry into the uterus yielded meconium stained amniotic fluid. The infant's head was then delivered atraumatically, OP position with nuchal cord x2. The cord was released over the infants head. Mouth and nose were bulb suctioned. . . The anterior shoulder and rest of infant delivered without difficulty. had spontaneous cry and excellent tone. The umbilical cord was clamped x2. The cord was cut. The was then placed in sterile bassinet. The placenta was spontaneously delivered with fundal massage in its entirety. The uterus was exteriorized and cleared of all clots and debris. The uterine incision was closed using 0 Vicryl in a running locking fashion. The incision was reinforce with 0 vicryl in an imbricating fashion. The posterior cul-de-sac was copiously irrigated. The uterus was returned to the abdomen. The pelvis was again irrigated with warm normal saline. The anterior rectus muscles were reapproximated using 0 Vicryl x4 interrupted fashion. The skin was reapproximated with 4-0 vicryl on a Elgin needle in a subcuticular stitch. The patient tolerated the procedure well. Sponge lap and needle counts were all correct x3. Patient was taken to the recovery room awake and in stable condition.
[2019-08-06] MEDS ORDERED: ONDANSETRON 4 MG/2 ML INJ IV PRN ×2 (10:00→12:49)
[2019-08-06] MEDS ORDERED: PROMETHAZINE 25 MG TAB PO PRN (10:00)
[2019-08-06] MEDS ORDERED: PROMETHAZINE 25 MG RECT SUPP PR PRN (10:00)
--- NOTE | 2019-08-06 10:25 | Anesthesia Day of Surgery ---
Anesthesia Day of Surgery - Day of Surgery Patient Examined: Yes Patient H&P Reviewed: Yes Patient is NPO: Yes
--- NOTE | 2019-08-06 10:26 | Post Anesthesia Evaluation ---
- Post Anesthesia Evaluation Patient Participated: Yes Airway Patent: Yes Stable Respiratory Function: Yes Nausea/Vomiting: No Temp > 96.8F: Yes Pain Manageable: Yes (PATI QL bloclk for post-op pain) Adequeate Hydration: Yes Anesthesia Complications: No Block Receding Appropriately: Yes Patient on Ventilator: No
[2019-08-06] MEDS ORDERED: WITCH HAZEL/ GLYCERIN PAD TP PRN (12:49)
[2019-08-06] MEDS ORDERED: LANOLIN/ZINC/DIMETHICONE (LANSINOH) 7 GM TP PRN (12:49)
[2019-08-06] MEDS ORDERED: ACETAMINOPHEN 325 MG TAB PO PRN (12:49)
[2019-08-06] MEDS ORDERED: MORPHINE 4 MG/1 ML INJ IV PRN (12:49)
[2019-08-06] MEDS ORDERED: SIMETHICONE 80 MG CHEW TAB PO PRN (12:49)
[2019-08-06] MEDS ORDERED: D5W/LACTATED RINGERS 1,000 ML IV SCH (12:49)
[2019-08-06] MEDS ORDERED: FLU VACC QUAD 2019-20 (3 YR UP)/PF 60 MCG/0.5 ML SYRINGE IM ONE (12:49)
[2019-08-06] MEDS: MORPHINE 2 MG/1 ML INJ IV PRN (13:03)
[2019-08-06] MEDS: KETOROLAC 30 MG/1 ML INJ IV SCH (16:55)
[2019-08-06] MEDS: ceFAZolin/NS 1 GM/50 ML 1 GM/50 ML BAG IV SCH (16:59)
[2019-08-06] MEDS: FERROUS SULFATE 325 MG TAB PO SCH (18:29)
[2019-08-06] MEDS: DOCUSATE SODIUM 100 MG CAP PO SCH (18:29)
[2019-08-06 21:30] LABS: Hematocrit 28.2 % (30.3-42.9); Hemoglobin 9.4 gm/dl (10.1-14.3)
[2019-08-07] MEDS: ceFAZolin/NS 1 GM/50 ML 1 GM/50 ML BAG IV SCH (01:15)
[2019-08-07] MEDS: KETOROLAC 30 MG/1 ML INJ IV SCH (01:16)
[2019-08-07] MEDS: MORPHINE 2 MG/1 ML INJ IV PRN (06:38)
--- NOTE | 2019-08-07 07:51 | Progress Note ---
Assessment and Plan A: Pt is PPD #1 s/p due to non reassuring heart rate, tachycardia P: Continue with care Subjective - Subjective Date of service: 08/07/19 (Pt doing well. C/o some soreness. Passing flatus and ambulating w/o difficulty. ) Principal diagnosis: IUP@39 weeks Patient reports: appetite normal, voiding normally, pain well controlled, ambulating normally : doing well Objective - Vital Signs Latest vital signs: Vital Signs Temp Pulse Resp BP BP Pulse Ox 08/07/19 04:06 98.0 F 76 20 110/63 98 08/06/19 23:30 98.2 F 89 20 101/61 98 08/06/19 20:16 74 20 116/83 100 08/06/19 16:05 98 F 90 20 121/80 08/06/19 11:04 98.3 F 71 16 111/72 98 08/06/19 10:37 71 18 121/72 98 08/06/19 10:10 87 18 119/83 97 08/06/19 09:50 100.7 F H 90 14 120/81 97 08/06/19 09:35 77 14 129/87 98 08/06/19 09:20 84 19 114/71 97 08/06/19 09:05 84 19 113/73 98 08/06/19 08:58 96 H 20 127/76 98 08/06/19 08:53 101.6 F H 74 20 118/73 98 Intake and Output 08/06/19 08/07/19 08/07/19 22:59 06:59 14:59 Intake Total 490 Output Total 1050 400 Balance -560 -400 Intake: IV 50 ANCEF/NS 1 GM/50 ML 1 gm 50 In 50 ml @ 100 mls/hr IV Q8H [facility] Rx#:[id number] Oral 440 Output: Urine 1050 400 Indwelling Catheter 1050 400 Other: Total, Intake Amount 320 Total, Output Amount 150 200 # Voids Void 0 - Exam Breasts: Present: deferred Cardiovascular: Present: Regular rate Lungs: Present: Normal air movement Abdomen: Present: normal appearance, soft, normal bowel sounds Vulva: both: normal Uterus: Present: normal, firm, fundal height below umbilicus, other (Minimal rubra.) Extremities: Present: normal Deep Tendon Reflex Grade: Normal +2 Incision: Present: normal, dry, intact, other (No s/sx of infection or drainage noted. ) - Labs Labs: Abnormal lab results 08/06/19 Range/Units 21:10 Hgb 9.4 L (10.1-14.3) gm/dl Hct 28.2 L D (30.3-42.9) %
[2019-08-07] MEDS: oxyCODONE /ACETAMINOPHEN 5-325MG TAB PO PRN ×3 (08:13→20:03)
[2019-08-07] MEDS: FERROUS SULFATE 325 MG TAB PO SCH (11:55)
[2019-08-07] MEDS: DOCUSATE SODIUM 100 MG CAP PO SCH ×2 (11:55→23:53)
[2019-08-08] MEDS: IBUPROFEN 800 MG TAB PO PRN ×2 (01:22→13:21)
--- NOTE | 2019-08-08 08:00 | Discharge Summary ---
Providers - Providers Date of Admission: 08/05/19 22:26 Date of discharge: 08/08/19 (Pt has a desire to be discharged home.) Attending physician: ELEAZAR VERNON 08/06/19 12:49 Consult to Immigration Patrol Inspector [CONS] Routine Reason For Exam: Primary care physician: PERCY CHRISTIAN Hospitalization Reason for admission: section (D/t tachycardia) Procedure: section, primary low transverse Episiotomy: none Laceration: none Incision: normal, dry, intact Other procedures: none complications: none, pelvic infection baby: female Hospital course: S: Pt doing well. Has strong desire to go home. Passing flatus, voiding and ambulating without difficulty. O: VSS, Incision open to air, intact, no drainage noted. No s/sx of infection. H/H 9.4/28.2. A: 24 y.o. Primary @ term due to tachycardia. P: D/C home with instructions. Take medications as prescribed when discharged home. Condition at discharge: Good Disposition: DC-01 TO HOME OR SELFCARE Plan - Discharge Medications Prescriptions: Docusate Sodium [Colace] 100 mg PO BID PRN #30 capsule PRN Reason: Constipation Ferrous Sulfate [Feosol 325 MG tab] 325 mg PO DAILY #90 tablet Ibuprofen [Motrin 800 MG tab] 800 mg PO TID PRN #30 tablet PRN Reason: Pain oxyCODONE /ACETAMINOPHEN [Percocet 5/325 mg] 1 - 2 tab PO Q4HR PRN #20 tablet PRN Reason: Pain - Provider Discharge Summary Activity: no sex for 6 weeks, no heavy lifting 4 weeks, no strenuous exercise Diet: routine Instructions: routine Additional instructions: [] Smoking cessation referral if applicable(refer to patient education folder for contact #) [] Refer to [facility] Booklet Call your doctor immediately for: * Fever > 100.5 * Heavy vaginal bleeding ( >1 pad per hour) * Severe persistent headache * Shortness of breath * Reddened, hot, painful area to leg or breast * Drainage or odor from incision. * Keep incision clean and dry at all times and follow doctor's instructions regarding bathing/showering - Follow up plan Follow up: PERCY CHRISTIAN MD [Primary Care Provider] - 7 Days (Congratulations!! Please follow up in the clinic in 1 week for an incision check. Please take pain medication as prescribed. If you have any questions or concerns, please give the office a call. )
[2019-08-08] MEDS: DOCUSATE SODIUM 100 MG CAP PO SCH (11:16)
[2019-08-08] MEDS: FERROUS SULFATE 325 MG TAB PO SCH (11:17)
[2019-08-08 15:08] VITALS: BP 116/69
== END 2019-08-08 15:29 | disposition home or self-care (01) | DRG 787 ==
LOC: TRG 21:15 → LD 22:26 → OB 08-06 11:34
PROVIDERS: ADMIT Obstetrics & Gynecology; ATTEND Obstetrics & Gynecology
PROC: 10D00Z1 Extraction of Products of Conception, Low, Open Approach (ICD-10-PCS; principal; 2019-08-06)
PROC: 3E0234Z Introduction of Serum, Toxoid and Vaccine into Muscle, Percutaneous Approach (ICD-10-PCS; 2019-08-06)
PROC: 10H07YZ Insertion of Other Device into Products of Conception, Via Natural or Artificial Opening (ICD-10-PCS; 2019-08-06)
PROC: 10H07YZ Insertion of Other Device into Products of Conception, Via Natural or Artificial Opening (ICD-10-PCS; 2019-08-06)
DX: O76 Abnormality in fetal heart rate and rhythm complicating labor and delivery (principal); D62 Acute posthemorrhagic anemia; O99.02 Anemia complicating childbirth; O77.0 Labor and delivery complicated by meconium in amniotic fluid; O64.0XX0 Obstructed labor due to incomplete rotation of fetal head, not applicable or unspecified; O69.81X0 Labor and delivery complicated by cord around neck, without compression, not applicable or unspecified; O66.0 Obstructed labor due to shoulder dystocia; Z3A.39 39 weeks gestation of pregnancy; Z37.0 Single live birth; Z23 Encounter for immunization
CPT/HCPCS: 36415; 85014; 85018; 85025; 86592; 86850; 86900; 86901; 90686; G0378; C1765; J0690; J1100; J1170; J1885; J2210; J2270; J2405; J2590; J2765; J3010; J3490; J7030; J7120; J7121